=== PATIENT | male | born 1955 | race African-American/Black ===

== ENCOUNTER 2020-04-03 06:37 | Outpatient (CLI) | payer OTHER, SELFPAY ==
[2020-04-03 07:48] LABS: Hematocrit 38.1 % (42.0-52.0); Hemoglobin 12.4 g/dL (14.0-18.0); Mean Corpuscular HGB Conc 32.5 g/dl (32-36); Mean Platelet Volume 10.9 fl (7.4-10.4); Platelet Count Result 249 k/mm3 (150-375); Red Blood Count 4.43 M/mm3 (4.6-6.20); Red Cell Distribution Width 17.3 % (11.5-14.5); White Blood Count 5.8 K/mm3 (4.5-10.0)
[2020-04-03 07:58] LABS: Alanine Aminotransferase 14 U/L (4-50); Albumin Level 4.1 g/dL (3.5-5.1); Alkaline Phosphatase 71 U/L (38-126); Anion Gap 3 mmol/L (8-16); Aspartate Amino Transferase 24 U/L (17-59); Bilirubin,Total 0.5 mg/dL (0.2-1.3); Blood Urea Nitrogen 13 mg/dL (9-20); Calcium 9.4 mg/dL (8.4-10.2); Carbon Dioxide 32 mmol/L (22-30); Chloride 104 mmol/L (98-107); Cholesterol 168 mg/dL (0-200); Estimated Glomerular Filt Rate > 60; Glucose 115 mg/dL (75-110); HDL Direct 48 mg/dL; Potassium 4.9 mmol/L (3.4-5.0); Sodium 139 mmol/L (137-145); Triglycerides 57 mg/dL (<150)
[2020-04-03 08:08] LABS: LDL Cholesterol Direct 96 mg/dL
[2020-04-03 08:27] LABS: Prostate Specific Antigen 0.6 ng/mL (< OR = 4.0)
[2020-04-03 08:37] LABS: Free T4 Free Thyroxine 1.13 ng/mL (0.78-2.19)
[2020-04-04 15:18] LABS: Basophils Percent Auto 0.7 % (0.2-1.2); Eosinophils Absolute Auto 0.3 K/mm3 (0-0.3); Eosinophils Percent Auto 4.7 % (0-4.4); Immature Granulocyte Absolute 0.02 K/mm3 (0.00-0.031); Immature Granulocyte Percent A 0.3 % (0-0.5); Lymphocytes Percent Auto 30.2 % (18.3-44.2); Monocytes Absolute Auto 0.3 K/mm3 (0.1-0.6); Monocytes Percent Auto 5.5 % (2.6-8.5); Neutrophils Absolute Auto 3.5 K/mm3 (1.3-6.7); Neutrophils Percent Auto 58.6 % (45.5-73.1)
== END 2020-04-03 06:38 | disposition home or self-care (01) ==
PROVIDERS: PCP Internal Medicine; Visit Provider Internal Medicine
DX: N42.9 Disorder of prostate, unspecified (principal); I10 Essential (primary) hypertension
CPT/HCPCS: 36415; 80053; 80061; 84153; 84439; 84443; 85025; 85027

== ENCOUNTER 2020-06-19 09:39 | Outpatient (CLI) | payer OTHER, SELFPAY ==
--- NOTE | ~2020-06-19 | XR_ITS ---
EXAMINATION: XR hip BI 2V w AP pelvis EXAM DATE: 06/19/2020 10:02 INDICATION: Bilateral hip pain radiating to groin for 2 years, worse on the right. TECHNIQUE: Each hip imaged independently (separate right and also left hip) 'frog leg' and frontal p rojections for interpretation. Frontal projection pelvis. There is no prior study for comparison. FINDINGS: There is complete loss of the right hip joint space with mild subchondral collapse of the f emoral head, subchondral cystic formation of both the femoral head and acetabulum. Only minimal prima ry osteoarthritis on the left side. Right hip findings could be sequela from prior avascular necrosis , injury or infection given the asymmetry. There are no acute fractures or dislocations identified. There is no subcutaneous gas. The soft tis tamara is unremarkable. There are no radiopaque foreign bodies. IMPRESSION: 1. Asymmetric, severe right hip arthritis, could be sequela of chronic avascular necrosis, prior trau ma or prior infection. 2. Mild left hip primary osteoarthritis. Reviewed, dictated and finalized at location A. LE POURER IMPRESSION: 1. Asymmetric, severe right hip arthritis, could be sequela of chronic avascula r necrosis, prior trauma or prior infection. 2. Mild left hip primary osteoarthritis.
== END 2020-06-19 09:40 ==
PROVIDERS: PCP Internal Medicine; Visit Provider Nurse Practitioner Adult Health
DX: M16.0 Bilateral primary osteoarthritis of hip (principal)
CPT/HCPCS: 73521

== ENCOUNTER 2021-03-08 01:50 | Day surgery (SDC) | payer OTHER, SELFPAY ==
[2021-02-26 13:47] VITALS: BMI 29.0
--- NOTE | 2021-03-07 12:31 | PM.HPGS ---
History of Present Illness History of Present Illness Consent: Risks, benefits, and alternatives have been discussed and questions answered. Patient agrees to proceed with procedure. Chief complaint: hx of colon polyps Narrative: Reynaldo Aguayo is a 66 year old male here for colon cancer screening. He had a polyp removed 5 years ago Review of Systems Review of Systems: All systems reviewed & are unremarkable except as noted in HPI and below PMFSH Social History Social History Smoking packs per day: 0.5 Smoking cigarettes per day: 10.0 Years smoked: 30 Smoking pack-years: 15.00 Smoking status: Current every day smoker Tobacco type: cigarettes Alcohol intake: current Alcohol use details: rare Substance use: current Substance use type: marijuana Living arrangements: with family Spiritual care concerns: No Meds Home Medications and Allergies Home Medications Medication Instructions Recorded Confirmed Type Astragalus 1 tab-cap PO DAILY 02/26/21 03/08/21 History B Complex-Vitamin B12 1 tab-cap PO DAILY 02/26/21 03/08/21 History Co Q-10 1 tab-cap PO DAILY 02/26/21 03/08/21 History Vitamin D (with calcium) 1 tab-cap PO DAILY 02/26/21 03/08/21 History Vitamin D3 1 tab-cap PO DAILY 02/26/21 03/08/21 History amlodipine 5 mg PO DAILY 02/26/21 03/08/21 History ascorbate sodium (vitamin C) 1 tab-cap PO DAILY 02/26/21 03/08/21 History duloxetine 60 mg PO POST-TRANSFUSION 02/26/21 03/08/21 History gabapentin 300 mg PO TID 02/26/21 03/08/21 History magnesium 1 tab-cap PO DAILY 02/26/21 03/08/21 History oregano oil 1 tab-cap PO DAILY 02/26/21 03/08/21 History sildenafil 100 mg PO PRN 02/26/21 03/08/21 History zinc 1 tab-cap PO DAILY 02/26/21 03/08/21 History Allergies Allergy/AdvReac Type Severity Reaction Status Date / Time iohexol Allergy Unknown Verified 03/08/21 09:41 [From contrast - CT, X-RAY] Exam Resp: Auscultation: clear to auscultation bilaterally Cardio: Rate: regular rate Rhythm: regular rhythm GI: GI Palp: Yes Soft to palpation and No Tenderness to palpation present (GI) Assessment and Plan Assessment and plan (1) Colon cancer screening: Code(s): Z12.11 - Encounter for screening for malignant neoplasm of colon Status: Acute Assessment and Plan: Colonoscopy with possible biopsy or polypectomy or cautery or injection of substances.
[2021-03-08 09:42] VITALS: BP 156/94; PULSE 97; RESP 19; TEMP 36.1; O2SAT 100; BMI 27.1
[2021-03-08] MEDS: LACTATED RINGERS 1,000 ML 150 ML IV CONT (09:47)
--- NOTE | 2021-03-08 10:14 | P.PNAN_ITS ---
Anes - Initial Pre Proc Eval Procedure: Operation Date: 03/08/21 10:45 Proposed Procedures p Screening Colonoscopy - Javon Berkowitz MD Date/Time: 03/08/21 10:14 Surgeon: Javon Berkowitz MD Pre Op Diagnosis: hx of colon polyps Patient Data Age: 66 Gender: M Height: 1.75 m Weight: 83.5 kg Last Vital Signs Temp 97 F L 03/08/21 09:42 Pulse 97 03/08/21 09:42 Resp 19 03/08/21 09:42 BP 156/94 H 03/08/21 09:42 Pulse Ox 100 03/08/21 09:42 Allergies Allergy/AdvReac Type Severity Reaction Status Date / Time iohexol Allergy Unknown Verified 03/08/21 09:41 [From contrast - CT, X-RAY] Home Medications Medication Instructions Recorded Confirmed Type Astragalus 1 tab-cap PO DAILY 02/26/21 03/08/21 History B Complex-Vitamin B12 1 tab-cap PO DAILY 02/26/21 03/08/21 History Co Q-10 1 tab-cap PO DAILY 02/26/21 03/08/21 History Vitamin D (with calcium) 1 tab-cap PO DAILY 02/26/21 03/08/21 History Vitamin D3 1 tab-cap PO DAILY 02/26/21 03/08/21 History amlodipine 5 mg PO DAILY 02/26/21 03/08/21 History ascorbate sodium (vitamin C) 1 tab-cap PO DAILY 02/26/21 03/08/21 History duloxetine 60 mg PO POST-TRANSFUSION 02/26/21 03/08/21 History gabapentin 300 mg PO TID 02/26/21 03/08/21 History magnesium 1 tab-cap PO DAILY 02/26/21 03/08/21 History oregano oil 1 tab-cap PO DAILY 02/26/21 03/08/21 History sildenafil 100 mg PO PRN 02/26/21 03/08/21 History zinc 1 tab-cap PO DAILY 02/26/21 03/08/21 History Patient hx anesthesia problems: none Family hx anesthesia problems: none Results Review: All pre-operative results and documents have been reviewed as part of the pre-operative evaluation. [facility] Past Medical History Medical History (Updated 03/08/21 @ 10:13 by Josh Bond MD) Hypertension Social History Social History Smoking packs per day: 0.5 Smoking cigarettes per day: 10.0 Years smoked: 30 Smoking pack-years: 15.00 Smoking status: Current every day smoker Tobacco type: cigarettes Alcohol intake: current Alcohol use details: rare Substance use: current Substance use type: marijuana Living arrangements: with family Spiritual care concerns: No Anes - Eval Final PreProcedure Day of Procedure 03/08/21 10:14 Patient weight: normal Heart: regular rate and rhythm Lungs: clear to auscultation Airway: Mallampati scale class II Neurological: alert and oriented Last oral intake: >/= 8 hours ASA classification: II Emergent: no Anesthetic plan: proceed Anesthesia type and monitoring: general GIVS and standard monitoring Results Review: All pre-operative results and documents have been reviewed as part of the pre-operative evaluation. Informed Consent: The patient's anesthetic plan and its attendant risks and benefits were discussed with the patient/family/POA. Questions were solicited and answers provided to the satisfaction of the patient/family/POA.
[2021-03-08 10:59] VITALS: BP 118/85; PULSE 76; RESP 18; O2SAT 99
[2021-03-08 11:09] VITALS: BP 155/97; PULSE 72; RESP 23; O2SAT 100
[2021-03-08 11:19] VITALS: BP 154/97; PULSE 84; RESP 17; O2SAT 100
== END 2021-03-08 11:28 | disposition home or self-care (01) ==
PROVIDERS: PCP Internal Medicine; Visit Provider Internal Medicine Gastroenterology
PROC: 0DJD8ZZ Inspection of Lower Intestinal Tract, Via Natural or Artificial Opening Endoscopic (ICD-10-PCS; CPT 45378; principal; 2021-03-08 10:45)
DX: Z12.11 Encounter for screening for malignant neoplasm of colon (principal); K57.30 Diverticulosis of large intestine without perforation or abscess without bleeding; Z86.010 Personal history of colon polyps; I10 Essential (primary) hypertension; F17.210 Nicotine dependence, cigarettes, uncomplicated
CPT/HCPCS: 45378; J2704; J7120

== ENCOUNTER 2022-05-01 07:10 | Outpatient (CLI) | payer MEDICARE, SELFPAY ==
--- NOTE | ~2022-05-01 | MR_ITS ---
EXAMINATION: MR hip RT wo con DATE: 05/01/2022 08:07 INDICATION: Right hip pain TECHNIQUE: Magnetic resonance imaging (MRI) of the right hip was performed without intravenous contr ast. Sequences included full-field axial PD-weighted FS FSE and T1-weighted FSE, coronal of the pelvi s with PD-weighted FS FSE, T2-weighted FSE and T1-weighted FSE, small field of view of the right hip with axial PD-weighted FS FSE, sagittal PD-weighted FS FSE, coronal PD-weighted FS FSE and coronal T2 weighted FSE. Additional radial T1-weighted FGR oriented orthogonal to the acetabular rim were obt ained for evaluation of the labrum. COMPARISON: Right hip radiographs dated 06/19/2020 FINDINGS: Bones/labrum/cartilage: No fracture, osteonecrosis or pathologic marrow replacing process. Advanced osteoarthritis at the rig ht hip with remodeling and loss of bone stock along the cephalad aspect of the femoral head and aceta bulum. This has progressed significant since the prior radiographs and results in increasing cephalad migration of the right femur relative to the left. There is diffuse degeneration of the right acetab ular labrum as well as the reflected head of the right rectus femoris tendon. Mild osteoarthritis at the left hip with high-grade chondromalacia with subarticular edema and cystlike changes along the la teral rim of the left acetabulum. There is suggestion of a tear of the left acetabular labrum which i s not diagnostically evaluated on the larger [id number] images. Mild bilateral sacral iliac osteoa rthritis. Severe lumbar spondylosis. Fluid: Physiologic amount fluid at both hips with mild likely reactive synovitis about the right hip. Soft tissues: There is asymmetric mild likely disease atrophy of the musculature of the right pelvis and proximal t high. Mild left ischial bursitis with mild tendinopathy without discrete tear at the ischial tuberosi ty origin of the left proximal hamstring tendons. Mild tendinopathy without tear at the distal left g luteus medius tendon. There are few diverticula along the sigmoid colon without adjacent inflammatory change to suggest diverticulitis. Prostatomegaly. Limited evaluation of visceral organs of the pelvi s is otherwise unremarkable. Small fat-containing left inguinal hernia. No pathologically enlarged pe lvic/inguinal lymphadenopathy. IMPRESSION: 1. Advanced osteoarthritis at the right hip. 2. Severe lumbar spondylosis. 3. Mild left hip osteoarthritis with suggestion of labral tear which is not diagnostically evaluated on the large [id number] images. 4. Mild left ischial bursitis with mild tendinopathy of the proximal left hamstring tendons. 5. Mild tendinopathy left gluteus medius tendon. 6. Prostatomegaly. Reviewed, dictated and finalized at location A. OPERATOR IMPRESSION: 1. Advanced osteoarthritis at the right hip. 2. Severe lumbar spondylosis. 3. Mild left hip osteoarthritis with suggestion of labral tear which is not woody gnostically evaluated on the large [id number] images. 4. Mild left ischial bursitis with mild tendinopathy of the proximal left hamst ring tendons. 5. Mild tendinopathy left gluteus medius tendon. 6. Prostatomegaly.
== END 2022-05-01 07:11 ==
LOC: MICIMG 07:12
PROVIDERS: PCP Internal Medicine; Visit Provider Orthopaedic Surgery
DX: M25.551 Pain in right hip (principal); M43.06 Spondylolysis, lumbar region; M16.0 Bilateral primary osteoarthritis of hip; M71.551 Other bursitis, not elsewhere classified, right hip; M76.02 Gluteal tendinitis, left hip; N40.0 Benign prostatic hyperplasia without lower urinary tract symptoms
CPT/HCPCS: 73721